=== PATIENT | male | born 1930 | race Asian ===

== ENCOUNTER 2017-03-24 06:10 | Inpatient (IN) | payer MEDICARE, BC ==
[~2017-03-24] VITALS: Ht 172.7 cm; Wt 61.7 kg
[~2017-03-24 06:10] MED LIST: ASPI-1159 PO; CHOL500010 PO; LATA2.5D2 OP; TAMS0.4C31 PO
[2017-03-24] MEDS ORDERED: HYDROCODONE/ACETAMINOPHEN 5/325MG TABLET PO PRN (09:30)
[2017-03-24] MEDS ORDERED: FENTANYL CITRATE/PF 50MCG/ML 2ML VIAL ONE (09:51)
[2017-03-24] MEDS ORDERED: MIDAZOLAM HCL 2 MG/2 ML VIAL ONE (09:51)
[2017-03-24] MEDS ORDERED: BUPIVACAINE HCL 0.5% (5MG/ML) 50ML ONE (09:59)
[2017-03-24] MEDS ORDERED: SKIN ADHESIVE 0.7 GM EA TOP ONE (09:59)
[2017-03-24] MEDS ORDERED: ONDANSETRON HCL 4MG/2ML VIAL IV PRN (10:45)
[2017-03-24] MEDS ORDERED: MEPERIDINE HCL/PF 25MG/ML CPJ IV PRN (10:45)
[2017-03-24] MEDS ORDERED: HYDROMORPHONE HCL/PF 2MG/ML CPJ IV PRN (10:45)
[2017-03-24] MEDS ORDERED: LABETALOL HCL 20MG/4ML CARPUJECT IV PRN (10:45)
[2017-03-24] MEDS ORDERED: GLYCOPYRROLATE 0.2 MG/ML 2ML VIAL ONE (11:11)
[2017-03-24] MEDS ORDERED: ROCURONIUM BROMIDE 10MG/ML VIAL 5ML IV ONE (11:11)
[2017-03-24] MEDS ORDERED: LABETALOL HCL 5MG/ML VIAL 20ML IV ONE (11:11)
[2017-03-24] MEDS ORDERED: DEXAMETHASONE 4MG/ML 1ML VIAL ONE (11:11)
[2017-03-24] MEDS ORDERED: SODIUM CHLORIDE 0.9% 10ML VIAL ONE (11:11)
[2017-03-24] MEDS ORDERED: CEFAZOLIN SODIUM 1000MG/VIAL ONE (11:11)
[2017-03-24] MEDS ORDERED: PROPOFOL 200MG/20ML VIAL IV ONE (11:11)
[2017-03-24] MEDS ORDERED: SUCCINYLCHOLINE CHLORIDE 200MG/10ML VIAL IV ONE (11:11)
[2017-03-24] MEDS ORDERED: LIDOCAINE HCL 1% 20ML VIAL (Pyxis) INJ ONE (11:11)
[2017-03-24] MEDS ORDERED: NEOSTIGMINE METHYLSULFATE 1MG/ML 10 ML VIAL ONE (11:11)
[2017-03-24] MEDS ORDERED: HYDR-519 PO (11:37)
[2017-03-24] MEDS ORDERED: MULT-1146 PO (11:37)
[2017-03-24] MEDS ORDERED: ASCO-339 PO (11:37)
[2017-03-24] MEDS ORDERED: FAMO20TA8 PO (11:37)
[2017-03-24] MEDS ORDERED: LOSA25TA12 PO (11:37)
[2017-03-24] MEDS ORDERED: ALBU2.5V13 IH (11:37)
[2017-03-24] MEDS ORDERED: METO-293 PO (11:37)
[2017-03-24] MEDS ORDERED: MEGE400O28 PO (11:37)
[2017-03-24] MEDS ORDERED: RIVA20TA PO (11:37)
[2017-03-24] MEDS ORDERED: DIPH25CA83 PO (11:37)
[2017-03-24] MEDS ORDERED: TIMO15DR12 BOTHEYE (11:57)
[2017-03-24] MEDS ORDERED: [UNRECOGNIZED DRUG - CODE] PO (11:57)
[2017-03-24] MEDS ORDERED: LACT10SO7 PO (11:59)
[2017-03-24] MEDS ORDERED: PIPERACILLIN/TAZOBACTAM 3.375 G/VIAL IV SCH (14:00)
[2017-03-24 15:30] VITALS: BP 162/84
[2017-03-24 16:00] VITALS: BP 162/84
[2017-03-24] MEDS ORDERED: SODIUM CHLORIDE 0.9% 1,000 ML IV SCH (16:00)
[2017-03-24 17:23] LABS: HEMATOCRIT 33.5 % (42.0-52.0); HEMOGLOBIN 10.8 g/dL (14.0-18.0)
[2017-03-24] MEDS: PIPERACILLIN/TAZ 3.375G PREMIX 50 ML IV SCH (18:45)
[2017-03-24] MEDS: DEXT 5%/0.45% NACL KCL 20MEQ/L 1,000 ML IV SCH (18:45)
[2017-03-24 20:00] VITALS: BP 158/85
[2017-03-24] MEDS: MORPHINE SULFATE 4 MG/ML CPJ (NOT FOR IM USE) IV PRN ×2 (20:18→23:34)
[2017-03-24] MEDS: SODIUM CHLORIDE 0.9% INJ 3ML FLUSH IVF SCH (21:26)
[2017-03-25] VITALS: BP 149/81
[2017-03-25] MEDS: PIPERACILLIN/TAZ 3.375G PREMIX 50 ML IV SCH ×3 (03:43→17:30)
[2017-03-25] MEDS: DEXT 5%/0.45% NACL KCL 20MEQ/L 1,000 ML IV SCH (03:43)
[2017-03-25] MEDS: MORPHINE SULFATE 4 MG/ML CPJ (NOT FOR IM USE) IV PRN ×2 (03:57→08:13)
[2017-03-25 04:00] VITALS: BP 166/88
[2017-03-25 05:51] LABS: HEMATOCRIT. 26.9 % (42.0-52.0); HEMOGLOBIN. 8.3 g/dL (14.0-18.0); MEAN CORPUSCULAR HEMOGLOBIN 29.5 pg (28.0-32.0); MEAN CORPUSCULAR VOLUME 95.3 fL (80.0-94.0); MEAN PLATELET VOLUME 7.3 fl (7.4-10.4); PLATELET 418 x1000/uL (130-400); RED BLOOD CELL COUNT 2.83 mill/uL (4.7-6.1); RED CELL DISTRIBUTION WIDTH 19.3 % (11.6-14.6)
[2017-03-25 06:32] LABS: CARBON DIOXIDE 14 mEq/L (21-32); CHLORIDE 109 mEq/L (98-107); PHOSPHORUS 3.4 mg/dL (2.5-4.9)
[2017-03-25] MEDS ORDERED: DEXTROSE 50% WATER 50ML SYRINGE IV PRN (07:30)
[2017-03-25] MEDS: INSULIN LISPRO 100 UNITS/ML SUBCUT SCH ×2 (07:30→07:34)
[2017-03-25] MEDS ORDERED: INSULIN LISPRO 100 UNITS/ML SUBCUT SCH (07:50)
[2017-03-25] MEDS ORDERED: BLOOD SUGAR DIAGNOSTIC STRIP TEST SCH (07:50)
[2017-03-25 08:00] VITALS: BP 164/89
[2017-03-25 12:00] VITALS: BP 163/102
[2017-03-25] MEDS ORDERED: CLONIDINE HCL 0.2MG/24HR PATCH TD SCH (12:00)
[2017-03-25] MEDS ORDERED: MAGNESIUM 2 G PREMIX 50 ML IV SCH (12:00)
[2017-03-25] MEDS: HYDROCODONE/ACETAMINOPHEN 5/325MG TABLET PO PRN ×2 (12:03→17:29)
[2017-03-25 14:01] LABS: PLATELET ESTIMATE SLIGHTLY INCREASED
[2017-03-25] MEDS: SODIUM CHLORIDE 0.9% INJ 3ML FLUSH IVF SCH ×2 (15:25→22:11)
[2017-03-25] MEDS: SODIUM BICARBONATE 50 MEQ in DEXT 5%/0.2% NACL 1,000 ML IV SCH ×2 (15:25→22:11)
[2017-03-25 16:00] VITALS: BP 158/91
[2017-03-25 20:00] VITALS: BP 146/88
[2017-03-25] MEDS: HYDRALAZINE HCL 25MG TABLET PO SCH (22:11)
[2017-03-26] VITALS: BP_SYST 114; BP_SYST 172; BP_DIAS 54; BP_DIAS 93
[2017-03-26] MEDS: MORPHINE SULFATE 4 MG/ML CPJ (NOT FOR IM USE) IV PRN ×3 (01:55→21:44)
[2017-03-26] MEDS: PIPERACILLIN/TAZ 3.375G PREMIX 50 ML IV SCH ×3 (01:58→17:53)
[2017-03-26 04:00] VITALS: BP 171/95
[2017-03-26] MEDS: HYDRALAZINE HCL 25MG TABLET PO SCH (05:40)
[2017-03-26] MEDS: SODIUM CHLORIDE 0.9% INJ 3ML FLUSH IVF SCH ×3 (05:41→21:45)
[2017-03-26 07:08] LABS: BASOPHILS % 0.3 % (0.0-2.0); HEMATOCRIT. 30.5 % (42.0-52.0); LYMPHOCYTES % 4.7 % (20.0-50.0); MEAN CORPUSCULAR HEMOGLOBIN 29.2 pg (28.0-32.0); MEAN CORPUSCULAR VOLUME 89.2 fL (80.0-94.0); MONOCYTES % 5.1 % (2.0-8.0); NEUTROPHILS % 89.9 % (40.0-76.0); RED BLOOD CELL COUNT 3.43 mill/uL (4.7-6.1); RED CELL DISTRIBUTION WIDTH 18.5 % (11.6-14.6)
[2017-03-26 07:31] LABS: PLATELET 528 x1000/uL (130-400)
[2017-03-26 07:44] LABS: CARBON DIOXIDE 24 mEq/L (21-32); CHLORIDE 108 mEq/L (98-107); PHOSPHORUS 3.1 mg/dL (2.5-4.9)
[2017-03-26 08:00] VITALS: BP 182/108
[2017-03-26] MEDS: ONDANSETRON HCL 4MG/2ML VIAL IV PRN (10:48)
[2017-03-26 12:00] VITALS: BP 149/82
[2017-03-26] MEDS: HYDRALAZINE HCL 50MG TABLET PO SCH ×2 (15:08→21:42)
[2017-03-26 16:00] VITALS: BP 150/82
[2017-03-26] MEDS: SODIUM BICARBONATE 50 MEQ in DEXT 5%/0.2% NACL 1,000 ML IV SCH ×2 (16:47→21:42)
[2017-03-26 20:00] VITALS: BP 146/74
[2017-03-27] VITALS (9 sets, daily range): BP systolic 114–144; BP diastolic 54–77
[2017-03-27] MEDS: PIPERACILLIN/TAZ 3.375G PREMIX 50 ML IV SCH ×3 (05:45→19:48)
[2017-03-27] MEDS: SODIUM BICARBONATE 50 MEQ in DEXT 5%/0.2% NACL 1,000 ML IV SCH ×2 (05:45→19:06)
[2017-03-27] MEDS: SODIUM CHLORIDE 0.9% INJ 3ML FLUSH IVF SCH ×3 (05:46→18:22)
[2017-03-27] MEDS: HYDRALAZINE HCL 50MG TABLET PO SCH ×3 (05:56→22:06)
[2017-03-27] MEDS: MORPHINE SULFATE 4 MG/ML CPJ (NOT FOR IM USE) IV PRN ×2 (06:33→20:57)
[2017-03-27 08:42] LABS: CARBON DIOXIDE 23 mEq/L (21-32); CHLORIDE 106 mEq/L (98-107)
[2017-03-27] MEDS ORDERED: BISACODYL 10MG SUPP PR SCH (10:15)
[2017-03-27] MEDS ORDERED: BISACODYL 5MG TABLET PO SCH (10:15)
[2017-03-27 11:15] LABS: HEMATOCRIT. 23.8 % (42.0-52.0); HEMOGLOBIN. 7.8 g/dL (14.0-18.0); MEAN CORPUSCULAR HEMOGLOBIN 29.3 pg (28.0-32.0); MEAN CORPUSCULAR VOLUME 89.3 fL (80.0-94.0); MEAN PLATELET VOLUME 7.4 fl (7.4-10.4); PLATELET 417 x1000/uL (130-400); RED BLOOD CELL COUNT 2.67 mill/uL (4.7-6.1); RED CELL DISTRIBUTION WIDTH 17.9 % (11.6-14.6)
[2017-03-27 12:23] LABS: PLATELET ESTIMATE SLIGHTLY INCREASED
[2017-03-27] MEDS ORDERED: FUROSEMIDE 20MG/2ML VIAL IVP NR (16:00)
[2017-03-27] MEDS: ONDANSETRON HCL 4MG/2ML VIAL IV PRN (18:22)
[2017-03-28] VITALS: BP 105/54
[2017-03-28] MEDS: PIPERACILLIN/TAZ 3.375G PREMIX 50 ML IV SCH ×3 (01:18→18:01)
[2017-03-28 04:00] VITALS: BP 100/56
[2017-03-28] MEDS: SODIUM BICARBONATE 50 MEQ in DEXT 5%/0.2% NACL 1,000 ML IV SCH ×2 (05:16→14:04)
[2017-03-28] MEDS: HYDRALAZINE HCL 50MG TABLET PO SCH ×3 (05:18→21:55)
[2017-03-28] MEDS: SODIUM CHLORIDE 0.9% INJ 3ML FLUSH IVF SCH ×3 (05:18→22:27)
[2017-03-28] MEDS: MORPHINE SULFATE 4 MG/ML CPJ (NOT FOR IM USE) IV PRN ×2 (06:20→18:27)
[2017-03-28 07:44] LABS: HEMATOCRIT 25.9 % (42.0-52.0); HEMOGLOBIN 8.6 g/dL (14.0-18.0); MEAN CORPUSCULAR HEMOGLOBIN 29.4 pg (28.0-32.0); MEAN CORPUSCULAR VOLUME 88.4 fL (80.0-94.0); PLATELET 419 x1000/uL (130-400); RED BLOOD CELL COUNT 2.93 mill/uL (4.7-6.1); RED CELL DISTRIBUTION WIDTH 16.8 % (11.6-14.6)
[2017-03-28 08:00] VITALS: BP 126/54
[2017-03-28] MEDS: METOCLOPRAMIDE HCL 10MG/2ML VIAL IV SCH ×2 (11:52→18:00)
[2017-03-28 12:00] VITALS: BP 110/62
[2017-03-28] MEDS ORDERED: FUROSEMIDE 20MG/2ML VIAL IVP NR (12:00)
[2017-03-28 16:00] VITALS: BP 125/65
[2017-03-28 20:00] VITALS: BP 130/71
[2017-03-29] VITALS: BP 133/67
[2017-03-29] MEDS: METOCLOPRAMIDE HCL 10MG/2ML VIAL IV SCH ×4 (00:12→17:04)
[2017-03-29] MEDS: SODIUM BICARBONATE 50 MEQ in DEXT 5%/0.2% NACL 1,000 ML IV SCH (03:50)
[2017-03-29] MEDS: PIPERACILLIN/TAZ 3.375G PREMIX 50 ML IV SCH ×3 (03:50→17:05)
[2017-03-29] MEDS: MORPHINE SULFATE 4 MG/ML CPJ (NOT FOR IM USE) IV PRN (03:54)
[2017-03-29 04:00] VITALS: BP 121/58
[2017-03-29] MEDS: SODIUM CHLORIDE 0.9% INJ 3ML FLUSH IVF SCH ×3 (06:07→21:43)
[2017-03-29] MEDS: HYDRALAZINE HCL 50MG TABLET PO SCH (06:07)
[2017-03-29 06:16] LABS: BASOPHILS % 0.4 % (0.0-2.0); EOSINOPHILS % 0.4 % (0.0-5.0); HEMATOCRIT. 33.1 % (42.0-52.0); HEMOGLOBIN. 10.8 g/dL (14.0-18.0); LYMPHOCYTES % 7.3 % (20.0-50.0); MEAN CORPUSCULAR HEMOGLOBIN 29.1 pg (28.0-32.0); MEAN CORPUSCULAR VOLUME 89.4 fL (80.0-94.0); MEAN PLATELET VOLUME 7.4 fl (7.4-10.4); MONOCYTES % 5.5 % (2.0-8.0); NEUTROPHILS % 86.4 % (40.0-76.0); PLATELET 579 x1000/uL (130-400); RED CELL DISTRIBUTION WIDTH 17.4 % (11.6-14.6)
[2017-03-29 06:49] LABS: CARBON DIOXIDE 26 mEq/L (21-32); CHLORIDE 103 mEq/L (98-107)
[2017-03-29 06:54] LABS: PHOSPHORUS 3.4 mg/dL (2.5-4.9)
[2017-03-29 08:00] VITALS: BP 87/51
[2017-03-29] MEDS ORDERED: BISACODYL 10MG SUPP PR NR (10:15)
[2017-03-29] MEDS ORDERED: SODIUM CHLORIDE 0.9% 500 ML IV ONE (11:45)
[2017-03-29 12:20] VITALS: BP 119/53
[2017-03-29] MEDS: DEXT 5%/0.9% NACL KCL 20MEQ/L 1,000 ML IV SCH (14:02)
[2017-03-29 16:00] VITALS: BP 98/46
[2017-03-29] MEDS: HYDROMORPHONE HCL/PF 2MG/ML CPJ IV PRN (17:13)
[2017-03-29 20:00] VITALS: BP 110/58
[2017-03-30] VITALS: BP 113/53
[2017-03-30] MEDS: METOCLOPRAMIDE HCL 10MG/2ML VIAL IV SCH ×4 (01:06→18:14)
[2017-03-30] MEDS: PIPERACILLIN/TAZ 3.375G PREMIX 50 ML IV SCH ×3 (01:06→18:14)
[2017-03-30 04:00] VITALS: BP 107/68
[2017-03-30] MEDS: SODIUM CHLORIDE 0.9% INJ 3ML FLUSH IVF SCH ×3 (05:50→22:06)
[2017-03-30] MEDS: HYDROMORPHONE HCL/PF 2MG/ML CPJ IV PRN (06:49)
[2017-03-30 06:54] LABS: CHLORIDE 102 mEq/L (98-107)
[2017-03-30 06:57] LABS: BASOPHILS % 0.3 % (0.0-2.0); EOSINOPHILS % 0.4 % (0.0-5.0); HEMATOCRIT. 28.6 % (42.0-52.0); HEMOGLOBIN. 9.4 g/dL (14.0-18.0); LYMPHOCYTES % 9.2 % (20.0-50.0); MEAN CORPUSCULAR HEMOGLOBIN 29.4 pg (28.0-32.0); MEAN CORPUSCULAR VOLUME 89.3 fL (80.0-94.0); MEAN PLATELET VOLUME 7.3 fl (7.4-10.4); MONOCYTES % 5.4 % (2.0-8.0); NEUTROPHILS % 84.7 % (40.0-76.0); PLATELET 529 x1000/uL (130-400); RED CELL DISTRIBUTION WIDTH 17.2 % (11.6-14.6)
[2017-03-30 07:04] LABS: CARBON DIOXIDE 20 mEq/L (21-32); PHOSPHORUS 4.6 mg/dL (2.5-4.9)
[2017-03-30 08:00] VITALS: BP 112/45
[2017-03-30 09:40] LABS: CLARITY URINE CLOUDY (CLEAR); COLOR URINE YELLOW (YELLOW); GLUCOSE URINE NEGATIVE (NEGATIVE); KETONES URINE NEGATIVE (NEGATIVE); LEUKOCYTE ESTERASE URINE TRACE (NEGATIVE); NITRITE URINE NEGATIVE (NEGATIVE); OCCULT BLOOD URINE TRACE (NEGATIVE); PROTEIN URINE 2+ (NEGATIVE); SPECIFIC GRAVITY URINE 1.023 (1.005-1.030); UROBILINOGEN URINE 0.2 E.U./dL (0.2-1.0)
[2017-03-30] MEDS: ENOXAPARIN 30MG/0.3ML SYR SUBCUT SCH (09:43)
[2017-03-30] MEDS: DEXT 5%/0.9% NACL KCL 20MEQ/L 1,000 ML IV SCH ×2 (09:43→18:14)
[2017-03-30] MEDS: BLOOD SUGAR DIAGNOSTIC STRIP TEST SCH ×3 (11:43→21:58)
[2017-03-30] MEDS: INSULIN LISPRO (LOW DOSE) 100 UNITS/ML SUBCUT SCH ×3 (11:51→21:00)
[2017-03-30 12:00] VITALS: BP 122/48
[2017-03-30 16:00] VITALS: BP 103/43
[2017-03-30 20:00] VITALS: BP 109/55
[2017-03-30] MEDS: TOTAL PARENTERAL NUTRITION 1,000 ML IV SCH (21:54)
[2017-03-30] MEDS: FAT EMULSIONS 500 ML IV SCH (21:55)
[2017-03-31] VITALS: BP 106/59
[2017-03-31] MEDS: METOCLOPRAMIDE HCL 10MG/2ML VIAL IV SCH ×4 (00:26→17:39)
[2017-03-31] MEDS: PIPERACILLIN/TAZ 3.375G PREMIX 50 ML IV SCH ×3 (01:00→17:15)
[2017-03-31] MEDS: HYDROMORPHONE HCL/PF 2MG/ML CPJ IV PRN ×2 (01:35→04:37)
[2017-03-31 04:00] VITALS: BP 121/52
[2017-03-31] MEDS: SODIUM CHLORIDE 0.9% INJ 3ML FLUSH IVF SCH ×3 (06:21→21:17)
[2017-03-31] MEDS: BLOOD SUGAR DIAGNOSTIC STRIP TEST SCH ×4 (06:34→21:40)
[2017-03-31] MEDS: INSULIN LISPRO (LOW DOSE) 100 UNITS/ML SUBCUT SCH ×4 (06:47→21:00)
[2017-03-31 07:17] LABS: BASOPHILS % 0.7 % (0.0-2.0); EOSINOPHILS % 7.3 % (0.0-5.0); HEMOGLOBIN. 7.7 g/dL (14.0-18.0); LYMPHOCYTES % 10.9 % (20.0-50.0); MEAN CORPUSCULAR HEMOGLOBIN 29.9 pg (28.0-32.0); MEAN CORPUSCULAR VOLUME 89.8 fL (80.0-94.0); MEAN PLATELET VOLUME 7.4 fl (7.4-10.4); MONOCYTES % 5.8 % (2.0-8.0); NEUTROPHILS % 75.3 % (40.0-76.0); PLATELET 449 x1000/uL (130-400); RED BLOOD CELL COUNT 2.57 mill/uL (4.7-6.1); RED CELL DISTRIBUTION WIDTH 17.6 % (11.6-14.6)
[2017-03-31 07:36] LABS: INR 1.1; PARTIAL THROMBOPLASTIN TIME 31.1 sec (23.4-31.0); PROTHROMBIN TIME 11.8 sec (9.4-11.6)
[2017-03-31 07:38] LABS: PHOSPHORUS 3.9 mg/dL (2.5-4.9); PREALBUMIN 12.8 mg/dL (20.0-40.0)
[2017-03-31 08:00] VITALS: BP 97/40
[2017-03-31] MEDS: TOTAL PARENTERAL NUTRITION 1,000 ML IV SCH ×2 (08:37→21:19)
[2017-03-31] MEDS: ENOXAPARIN 30MG/0.3ML SYR SUBCUT SCH (08:39)
[2017-03-31 12:00] VITALS: BP 122/48
[2017-03-31 13:13] LABS: *CREATININE RANDOM URINE 57.9 mg/dL (Not Estab.); MICROALBUMIN RANDOM URINE 89.8 ug/mL (Not Estab.)
[2017-03-31] MEDS ORDERED: POTASSIUM CHLORIDE INJ 40 MEQ in DEXT 5% WATER 250 ML IV NR (13:30)
[2017-03-31 16:00] VITALS: BP 97/51
[2017-03-31 16:01] LABS: HEMATOCRIT 22.7 % (42.0-52.0); HEMOGLOBIN 7.2 g/dL (14.0-18.0)
[2017-03-31 20:00] VITALS: BP 105/54
[2017-03-31] MEDS: DEXT 5%/0.9% NACL KCL 20MEQ/L 1,000 ML IV SCH (21:21)
[2017-03-31 23:36] LABS: HEMATOCRIT 21.8 % (42.0-52.0); HEMOGLOBIN 7.3 g/dL (14.0-18.0)
[2017-04-01] VITALS: BP 98/47
[2017-04-01] MEDS: METOCLOPRAMIDE HCL 10MG/2ML VIAL IV SCH ×4 (00:56→18:05)
[2017-04-01 04:00] VITALS: BP 137/60
[2017-04-01] MEDS: SODIUM CHLORIDE 0.9% INJ 3ML FLUSH IVF SCH ×3 (05:33→22:09)
[2017-04-01] MEDS: BLOOD SUGAR DIAGNOSTIC STRIP TEST SCH ×4 (06:03→21:19)
[2017-04-01] MEDS: INSULIN LISPRO (LOW DOSE) 100 UNITS/ML SUBCUT SCH ×4 (06:03→21:00)
[2017-04-01 07:31] LABS: BASOPHILS % 0.9 % (0.0-2.0); EOSINOPHILS % 7.9 % (0.0-5.0); HEMATOCRIT. 24.7 % (42.0-52.0); HEMOGLOBIN. 8.1 g/dL (14.0-18.0); MEAN CORPUSCULAR HEMOGLOBIN 29.9 pg (28.0-32.0); MEAN CORPUSCULAR VOLUME 90.6 fL (80.0-94.0); MEAN PLATELET VOLUME 7.4 fl (7.4-10.4); MONOCYTES % 8.6 % (2.0-8.0); NEUTROPHILS % 72.6 % (40.0-76.0); PLATELET 469 x1000/uL (130-400); RED BLOOD CELL COUNT 2.72 mill/uL (4.7-6.1)
[2017-04-01 08:00] VITALS: BP 130/56
[2017-04-01 08:11] LABS: CARBON DIOXIDE 23 mEq/L (21-32); CHLORIDE 112 mEq/L (98-107); PHOSPHORUS 2.1 mg/dL (2.5-4.9)
[2017-04-01] MEDS: HYDROMORPHONE HCL/PF 2MG/ML CPJ IV PRN (09:04)
[2017-04-01] MEDS: TOTAL PARENTERAL NUTRITION 1,000 ML IV SCH ×2 (09:07→22:10)
[2017-04-01] MEDS ORDERED: PIPERACILLIN/TAZ 3.375G PREMIX 50 ML IV SCH (10:30)
[2017-04-01 12:00] VITALS: BP 131/64
[2017-04-01 16:00] VITALS: BP 112/63
[2017-04-01 16:04] LABS: HEMOGLOBIN 8.5 g/dL (14.0-18.0)
[2017-04-01] MEDS: DEXT 5%/0.9% NACL KCL 20MEQ/L 1,000 ML IV SCH (18:04)
[2017-04-01] MEDS: PIPERACILLIN/TAZ 3.375G PREMIX 50 ML IV SCH (18:04)
[2017-04-01 20:00] VITALS: BP 142/66
[2017-04-01 20:21] LABS: HEMATOCRIT 23.3 % (42.0-52.0); HEMOGLOBIN 7.6 g/dL (14.0-18.0)
[2017-04-01] MEDS: FAT EMULSIONS 500 ML IV SCH (22:09)
[2017-04-02] VITALS (10 sets, daily range): BP systolic 123–171; BP diastolic 60–85
[2017-04-02] MEDS: METOCLOPRAMIDE HCL 10MG/2ML VIAL IV SCH ×5 (00:16→23:30)
[2017-04-02] MEDS: PIPERACILLIN/TAZ 3.375G PREMIX 50 ML IV SCH ×3 (00:16→17:06)
[2017-04-02 00:29] LABS: HEMATOCRIT 21.7 % (42.0-52.0); HEMOGLOBIN 7.1 g/dL (14.0-18.0)
[2017-04-02] MEDS: SODIUM CHLORIDE 0.9% INJ 3ML FLUSH IVF SCH ×3 (05:59→22:26)
[2017-04-02] MEDS: INSULIN LISPRO (LOW DOSE) 100 UNITS/ML SUBCUT SCH ×4 (06:13→21:00)
[2017-04-02] MEDS: BLOOD SUGAR DIAGNOSTIC STRIP TEST SCH ×4 (06:13→21:57)
[2017-04-02] MEDS: ONDANSETRON HCL 4MG/2ML VIAL IV PRN (08:28)
[2017-04-02 08:42] LABS: BASOPHILS % 0.3 % (0.0-2.0); EOSINOPHILS % 2.5 % (0.0-5.0); HEMATOCRIT. 31.6 % (42.0-52.0); HEMOGLOBIN. 11.1 g/dL (14.0-18.0); LYMPHOCYTES % 9.1 % (20.0-50.0); MEAN CORPUSCULAR VOLUME 90.7 fL (80.0-94.0); MEAN PLATELET VOLUME 7.5 fl (7.4-10.4); MONOCYTES % 5.9 % (2.0-8.0); NEUTROPHILS % 82.2 % (40.0-76.0); PLATELET 533 x1000/uL (130-400); RED BLOOD CELL COUNT 3.48 mill/uL (4.7-6.1); RED CELL DISTRIBUTION WIDTH 17.1 % (11.6-14.6)
[2017-04-02 09:07] LABS: CARBON DIOXIDE 23 mEq/L (21-32); CHLORIDE 112 mEq/L (98-107); PHOSPHORUS 1.1 mg/dL (2.5-4.9)
[2017-04-02] MEDS: HYDROMORPHONE HCL/PF 2MG/ML CPJ IV PRN ×2 (09:12→12:30)
[2017-04-02] MEDS: TOTAL PARENTERAL NUTRITION 1,000 ML IV SCH ×2 (09:15→22:07)
[2017-04-02 09:54] LABS: PREALBUMIN 16.3 mg/dL (20.0-40.0)
[2017-04-02] MEDS ORDERED: POTASSIUM PHOS,M-BASIC-D-BASIC 30 MMOL in DEXT 5% WATER 500 ML IV NR (11:30)
[2017-04-02 16:29] LABS: HEMATOCRIT 29.8 % (42.0-52.0); HEMOGLOBIN 9.9 g/dL (14.0-18.0)
[2017-04-02] MEDS: DOCUSATE SODIUM 100MG CAPSULE PO SCH (17:05)
[2017-04-02 22:01] LABS: HEMATOCRIT 30.2 % (42.0-52.0); HEMOGLOBIN 9.9 g/dL (14.0-18.0)
[2017-04-02] MEDS: DEXT 5%/0.9% NACL KCL 20MEQ/L 1,000 ML IV SCH (22:17)
[2017-04-03] VITALS: BP 151/86
[2017-04-03] MEDS: HYDROMORPHONE HCL/PF 2MG/ML CPJ IV PRN ×4 (01:15→22:04)
[2017-04-03] MEDS: ONDANSETRON HCL 4MG/2ML VIAL IV PRN ×3 (01:15→22:04)
[2017-04-03] MEDS: PIPERACILLIN/TAZ 3.375G PREMIX 50 ML IV SCH ×3 (01:16→17:48)
[2017-04-03 01:27] LABS: HEMATOCRIT 31.4 % (42.0-52.0); HEMOGLOBIN 10.2 g/dL (14.0-18.0)
[2017-04-03 04:00] VITALS: BP 145/60
[2017-04-03] MEDS: BLOOD SUGAR DIAGNOSTIC STRIP TEST SCH ×4 (06:00→21:00)
[2017-04-03] MEDS: INSULIN LISPRO (LOW DOSE) 100 UNITS/ML SUBCUT SCH ×4 (06:01→21:00)
[2017-04-03] MEDS: SODIUM CHLORIDE 0.9% INJ 3ML FLUSH IVF SCH ×3 (06:03→22:06)
[2017-04-03] MEDS: METOCLOPRAMIDE HCL 10MG/2ML VIAL IV SCH ×3 (06:03→17:49)
[2017-04-03 06:33] LABS: BASOPHILS % 0.4 % (0.0-2.0); EOSINOPHILS % 2.1 % (0.0-5.0); HEMATOCRIT. 29.3 % (42.0-52.0); HEMOGLOBIN. 9.9 g/dL (14.0-18.0); LYMPHOCYTES % 10.2 % (20.0-50.0); MEAN CORPUSCULAR HEMOGLOBIN 30.7 pg (28.0-32.0); MEAN CORPUSCULAR VOLUME 90.8 fL (80.0-94.0); MEAN PLATELET VOLUME 7.5 fl (7.4-10.4); MONOCYTES % 8.7 % (2.0-8.0); NEUTROPHILS % 78.6 % (40.0-76.0); PLATELET 501 x1000/uL (130-400); RED BLOOD CELL COUNT 3.23 mill/uL (4.7-6.1); RED CELL DISTRIBUTION WIDTH 17.1 % (11.6-14.6)
[2017-04-03 06:43] LABS: CARBON DIOXIDE 22 mEq/L (21-32); CHLORIDE 113 mEq/L (98-107); PHOSPHORUS 1.8 mg/dL (2.5-4.9)
[2017-04-03 07:50] VITALS: BP 122/60
[2017-04-03] MEDS: DOCUSATE SODIUM 100MG CAPSULE PO SCH ×2 (09:11→17:49)
[2017-04-03 11:46] VITALS: BP 114/50
[2017-04-03] MEDS ORDERED: SODIUM PHOS,M-BASIC-D-BASIC 30 MM in DEXT 5% WATER 500 ML IV NR (12:30)
[2017-04-03] MEDS: TOTAL PARENTERAL NUTRITION 1,000 ML IV SCH (14:52)
[2017-04-03 15:52] VITALS: BP 136/56
[2017-04-03 20:00] VITALS: BP 114/93
[2017-04-04] VITALS: BP 118/85
[2017-04-04] MEDS: PIPERACILLIN/TAZ 3.375G PREMIX 50 ML IV SCH ×3 (01:21→17:31)
[2017-04-04] MEDS: METOCLOPRAMIDE HCL 10MG/2ML VIAL IV SCH ×4 (01:22→18:13)
[2017-04-04] MEDS: TOTAL PARENTERAL NUTRITION 1,000 ML IV SCH ×2 (03:33→15:44)
[2017-04-04 04:00] VITALS: BP 123/60
[2017-04-04] MEDS: HYDROMORPHONE HCL/PF 2MG/ML CPJ IV PRN ×2 (06:50→15:14)
[2017-04-04] MEDS: BLOOD SUGAR DIAGNOSTIC STRIP TEST SCH ×4 (06:56→21:00)
[2017-04-04] MEDS: INSULIN LISPRO (LOW DOSE) 100 UNITS/ML SUBCUT SCH ×4 (06:56→21:00)
[2017-04-04] MEDS: SODIUM CHLORIDE 0.9% INJ 3ML FLUSH IVF SCH ×2 (06:57→15:15)
[2017-04-04 08:00] VITALS: BP 117/45
[2017-04-04] MEDS: DOCUSATE SODIUM 100MG CAPSULE PO SCH ×2 (08:01→17:32)
[2017-04-04] MEDS ORDERED: PHYTONADIONE 10MG/ML AMP SUBCUT SCH (09:00)
[2017-04-04 09:46] LABS: BASOPHILS % 0.4 % (0.0-2.0); EOSINOPHILS % 1.9 % (0.0-5.0); HEMATOCRIT. 25.8 % (42.0-52.0); LYMPHOCYTES % 7.5 % (20.0-50.0); MEAN CORPUSCULAR VOLUME 96.5 fL (80.0-94.0); MEAN PLATELET VOLUME 7.3 fl (7.4-10.4); MONOCYTES % 6.7 % (2.0-8.0); NEUTROPHILS % 83.5 % (40.0-76.0); PLATELET 423 x1000/uL (130-400); RED BLOOD CELL COUNT 2.67 mill/uL (4.7-6.1); RED CELL DISTRIBUTION WIDTH 17.5 % (11.6-14.6)
[2017-04-04 10:00] LABS: CARBON DIOXIDE 21 mEq/L (21-32); CHLORIDE 114 mEq/L (98-107); PHOSPHORUS 3.3 mg/dL (2.5-4.9)
[2017-04-04 12:00] VITALS: BP 132/91
[2017-04-04 16:00] VITALS: BP 129/90
[2017-04-04 20:00] VITALS: BP 127/65
[2017-04-05] VITALS: BP 131/66
[2017-04-05] MEDS: SODIUM CHLORIDE 0.9% INJ 3ML FLUSH IVF SCH ×3 (00:26→13:09)
[2017-04-05] MEDS: METOCLOPRAMIDE HCL 10MG/2ML VIAL IV SCH ×4 (00:26→17:10)
[2017-04-05] MEDS: TOTAL PARENTERAL NUTRITION 1,000 ML IV SCH ×3 (00:35→22:01)
[2017-04-05] MEDS: FAT EMULSIONS 500 ML IV SCH (00:47)
[2017-04-05] MEDS: ONDANSETRON HCL 4MG/2ML VIAL IV PRN ×2 (01:16→08:34)
[2017-04-05] MEDS: PIPERACILLIN/TAZ 3.375G PREMIX 50 ML IV SCH ×3 (01:26→17:10)
[2017-04-05 04:30] VITALS: BP 132/63
[2017-04-05] MEDS: INSULIN LISPRO (LOW DOSE) 100 UNITS/ML SUBCUT SCH ×4 (06:17→21:00)
[2017-04-05] MEDS: BLOOD SUGAR DIAGNOSTIC STRIP TEST SCH ×4 (06:17→21:00)
[2017-04-05 08:00] VITALS: BP 138/57
[2017-04-05] MEDS: DOCUSATE SODIUM 100MG CAPSULE PO SCH ×2 (08:34→16:18)
[2017-04-05 10:10] LABS: BASOPHILS % 0.7 % (0.0-2.0); EOSINOPHILS % 3.8 % (0.0-5.0); HEMATOCRIT. 23.8 % (42.0-52.0); HEMOGLOBIN. 7.8 g/dL (14.0-18.0); LYMPHOCYTES % 9.9 % (20.0-50.0); MEAN CORPUSCULAR HEMOGLOBIN 30.5 pg (28.0-32.0); MEAN CORPUSCULAR VOLUME 92.6 fL (80.0-94.0); MEAN PLATELET VOLUME 7.1 fl (7.4-10.4); MONOCYTES % 7.3 % (2.0-8.0); NEUTROPHILS % 78.3 % (40.0-76.0); PLATELET 465 x1000/uL (130-400); RED BLOOD CELL COUNT 2.57 mill/uL (4.7-6.1); RED CELL DISTRIBUTION WIDTH 17.7 % (11.6-14.6)
[2017-04-05 10:18] LABS: INR 1.1; PARTIAL THROMBOPLASTIN TIME 37.9 sec (23.4-31.0); PROTHROMBIN TIME 11.4 sec (9.4-11.6)
[2017-04-05] MEDS: HYDROMORPHONE HCL/PF 2MG/ML CPJ IV PRN ×2 (10:18→18:28)
[2017-04-05 10:21] LABS: CHLORIDE 116 mEq/L (98-107)
[2017-04-05 10:29] LABS: CARBON DIOXIDE 22 mEq/L (21-32); PHOSPHORUS 2.4 mg/dL (2.5-4.9)
[2017-04-05] MEDS ORDERED: FENTANYL CITRATE/PF 50MCG/ML 2ML VIAL ONE (11:51)
[2017-04-05 12:00] VITALS: BP 117/75
[2017-04-05] MEDS: FLUCONAZOLE 400MG/200ML BAG 200 ML IV SCH (14:43)
[2017-04-05 16:00] VITALS: BP 147/65
[2017-04-05 20:00] VITALS: BP 104/50
[2017-04-06] VITALS (9 sets, daily range): BP systolic 112–157; BP diastolic 43–71
[2017-04-06] MEDS: HYDROMORPHONE HCL/PF 2MG/ML CPJ IV PRN ×9 (00:53→23:10)
[2017-04-06] MEDS: METOCLOPRAMIDE HCL 10MG/2ML VIAL IV SCH ×4 (00:55→17:05)
[2017-04-06] MEDS: SODIUM CHLORIDE 0.9% INJ 3ML FLUSH IVF SCH ×4 (00:56→22:00)
[2017-04-06] MEDS: PIPERACILLIN/TAZ 3.375G PREMIX 50 ML IV SCH ×3 (00:58→16:08)
[2017-04-06] MEDS: BLOOD SUGAR DIAGNOSTIC STRIP TEST SCH ×4 (06:40→21:16)
[2017-04-06] MEDS: INSULIN LISPRO (LOW DOSE) 100 UNITS/ML SUBCUT SCH ×4 (07:02→21:00)
[2017-04-06 07:40] LABS: HEMATOCRIT 27.8 % (42.0-52.0); HEMOGLOBIN 9.2 g/dL (14.0-18.0); MEAN CORPUSCULAR HEMOGLOBIN 29.9 pg (28.0-32.0); PLATELET 410 x1000/uL (130-400); RED BLOOD CELL COUNT 3.06 mill/uL (4.7-6.1); RED CELL DISTRIBUTION WIDTH 16.6 % (11.6-14.6)
[2017-04-06] MEDS: DOCUSATE SODIUM 100MG CAPSULE PO SCH ×2 (08:31→16:08)
[2017-04-06] MEDS: FLUCONAZOLE 400MG/200ML BAG 200 ML IV SCH (08:33)
[2017-04-06] MEDS: TOTAL PARENTERAL NUTRITION 1,000 ML IV SCH ×2 (09:22→21:42)
[2017-04-06] MEDS: FAT EMULSIONS 500 ML IV SCH (21:33)
[2017-04-07] VITALS: BP 148/60
[2017-04-07] MEDS: PIPERACILLIN/TAZ 3.375G PREMIX 50 ML IV SCH ×3 (01:05→16:13)
[2017-04-07] MEDS: METOCLOPRAMIDE HCL 10MG/2ML VIAL IV SCH ×4 (01:05→17:04)
[2017-04-07] MEDS: HYDROMORPHONE HCL/PF 2MG/ML CPJ IV PRN ×3 (03:22→11:21)
[2017-04-07] MEDS: BLOOD SUGAR DIAGNOSTIC STRIP TEST SCH ×4 (05:53→21:24)
[2017-04-07] MEDS: INSULIN LISPRO (LOW DOSE) 100 UNITS/ML SUBCUT SCH ×4 (05:54→21:00)
[2017-04-07] MEDS: SODIUM CHLORIDE 0.9% INJ 3ML FLUSH IVF SCH ×2 (05:59→13:16)
[2017-04-07 06:00] VITALS: BP 115/53
[2017-04-07 07:08] LABS: BASOPHILS % 0.3 % (0.0-2.0); HEMATOCRIT. 26.5 % (42.0-52.0); LYMPHOCYTES % 12.1 % (20.0-50.0); MEAN CORPUSCULAR VOLUME 91.9 fL (80.0-94.0); MEAN PLATELET VOLUME 7.4 fl (7.4-10.4); MONOCYTES % 6.5 % (2.0-8.0); NEUTROPHILS % 78.1 % (40.0-76.0); PLATELET 437 x1000/uL (130-400); RED BLOOD CELL COUNT 2.89 mill/uL (4.7-6.1); RED CELL DISTRIBUTION WIDTH 17.1 % (11.6-14.6)
[2017-04-07 08:00] VITALS: BP 138/76
[2017-04-07 08:09] LABS: PHOSPHORUS 2.7 mg/dL (2.5-4.9)
[2017-04-07] MEDS: DOCUSATE SODIUM 100MG CAPSULE PO SCH ×2 (08:20→16:13)
[2017-04-07] MEDS: FLUCONAZOLE 400MG/200ML BAG 200 ML IV SCH (08:21)
[2017-04-07 10:03] LABS: HEMOGLOBIN. 9.3 g/dL (14.0-18.0)
[2017-04-07 10:04] LABS: MEAN CORPUSCULAR HEMOGLOBIN 32.2 pg (28.0-32.0)
[2017-04-07] MEDS: TOTAL PARENTERAL NUTRITION 1,000 ML IV SCH (10:25)
[2017-04-07 12:00] VITALS: BP 132/53
[2017-04-07 16:00] VITALS: BP 147/65
[2017-04-07 20:00] VITALS: BP 126/66
[2017-04-07] MEDS: DEXTROSE 50% WATER 50ML SYRINGE IV PRN (21:27)
[2017-04-08] VITALS: BP 148/80
[2017-04-08] MEDS: PIPERACILLIN/TAZ 3.375G PREMIX 50 ML IV SCH ×3 (00:54→21:02)
[2017-04-08] MEDS: METOCLOPRAMIDE HCL 10MG/2ML VIAL IV SCH ×4 (00:54→17:04)
[2017-04-08] MEDS: HYDROMORPHONE HCL/PF 2MG/ML CPJ IV PRN (00:59)
[2017-04-08] MEDS: SODIUM CHLORIDE 0.9% INJ 3ML FLUSH IVF SCH ×4 (00:59→21:22)
[2017-04-08 04:00] VITALS: BP 147/67
[2017-04-08] MEDS: BLOOD SUGAR DIAGNOSTIC STRIP TEST SCH ×4 (05:48→21:02)
[2017-04-08 05:54] LABS: BASOPHILS % 0.5 % (0.0-2.0); EOSINOPHILS % 3.4 % (0.0-5.0); HEMOGLOBIN. 9.3 g/dL (14.0-18.0); MEAN CORPUSCULAR VOLUME 90.8 fL (80.0-94.0); MEAN PLATELET VOLUME 7.3 fl (7.4-10.4); MONOCYTES % 6.6 % (2.0-8.0); NEUTROPHILS % 78.5 % (40.0-76.0); PLATELET 427 x1000/uL (130-400); RED BLOOD CELL COUNT 3.08 mill/uL (4.7-6.1)
[2017-04-08] MEDS: DEXTROSE 50% WATER 50ML SYRINGE IV PRN (05:58)
[2017-04-08] MEDS: INSULIN LISPRO (LOW DOSE) 100 UNITS/ML SUBCUT SCH ×4 (06:03→21:00)
[2017-04-08 06:17] LABS: INR 1.1; PARTIAL THROMBOPLASTIN TIME 42.4 sec (23.4-31.0); PROTHROMBIN TIME 11.1 sec (9.4-11.6)
[2017-04-08 06:35] LABS: CARBON DIOXIDE 20 mEq/L (21-32); CHLORIDE 112 mEq/L (98-107); PHOSPHORUS 3.6 mg/dL (2.5-4.9)
[2017-04-08 08:00] VITALS: BP 155/82
[2017-04-08] MEDS: DOCUSATE SODIUM 100MG CAPSULE PO SCH ×2 (08:41→16:27)
[2017-04-08] MEDS: DEXTROSE 5% WATER 1,000 ML IV SCH (09:26)
[2017-04-08] MEDS ORDERED: IOHEXOL-300 100 ML BOTTLE ONE (10:36)
[2017-04-08] MEDS ORDERED: MIDAZOLAM HCL 2 MG/2 ML VIAL ONE (11:39)
[2017-04-08] MEDS ORDERED: FENTANYL CITRATE/PF 50MCG/ML 2ML VIAL ONE (11:39)
[2017-04-08] MEDS ORDERED: MEPERIDINE HCL/PF 25MG/ML CPJ IV PRN (12:00)
[2017-04-08] MEDS ORDERED: HYDROMORPHONE HCL/PF 2MG/ML CPJ IV PRN (12:00)
[2017-04-08] MEDS ORDERED: ONDANSETRON HCL 4MG/2ML VIAL IV PRN (12:00)
[2017-04-08] MEDS ORDERED: LABETALOL HCL 20MG/4ML CARPUJECT IV PRN (12:00)
[2017-04-08] MEDS ORDERED: LABETALOL HCL 5MG/ML VIAL 20ML IV ONE ×2 (13:18→13:25)
[2017-04-08] MEDS ORDERED: ONDANSETRON HCL 4MG/2ML VIAL ONE (13:25)
[2017-04-08] MEDS ORDERED: SUCCINYLCHOLINE CHLORIDE 200MG/10ML VIAL IV ONE (13:25)
[2017-04-08] MEDS ORDERED: GLYCOPYRROLATE 0.2 MG/ML 2ML VIAL ONE (13:25)
[2017-04-08] MEDS ORDERED: PROPOFOL 200MG/20ML VIAL IV ONE (13:25)
[2017-04-08] MEDS ORDERED: ROCURONIUM BROMIDE 10MG/ML VIAL 5ML IV ONE (13:25)
[2017-04-08] MEDS ORDERED: NEOSTIGMINE METHYLSULFATE 1MG/ML 10 ML VIAL ONE (13:25)
[2017-04-08] MEDS ORDERED: LIDOCAINE HCL 1% 20ML VIAL (Pyxis) INJ ONE (13:25)
[2017-04-08] MEDS: FLUCONAZOLE 400MG/200ML BAG 200 ML IV SCH (15:57)
[2017-04-08] MEDS: ENOXAPARIN 40MG/0.4ML SYR SUBCUT SCH (16:27)
[2017-04-08 20:00] VITALS: BP 128/65
[2017-04-08] MEDS: METOPROLOL TARTRATE 25MG TABLET PO SCH (21:02)
[2017-04-09] VITALS (7 sets, daily range): BP systolic 139–166; BP diastolic 68–86
[2017-04-09] MEDS: METOCLOPRAMIDE HCL 10MG/2ML VIAL IV SCH ×5 (01:39→23:25)
[2017-04-09] MEDS: DEXTROSE 5% WATER 1,000 ML IV SCH (06:05)
[2017-04-09] MEDS: SODIUM CHLORIDE 0.9% INJ 3ML FLUSH IVF SCH ×3 (06:05→22:06)
[2017-04-09] MEDS: INSULIN LISPRO (LOW DOSE) 100 UNITS/ML SUBCUT SCH ×4 (07:40→21:00)
[2017-04-09] MEDS: BLOOD SUGAR DIAGNOSTIC STRIP TEST SCH ×4 (07:47→21:00)
[2017-04-09] MEDS: ENOXAPARIN 40MG/0.4ML SYR SUBCUT SCH (08:41)
[2017-04-09] MEDS: DOCUSATE SODIUM 100MG CAPSULE PO SCH ×2 (08:41→16:25)
[2017-04-09] MEDS: METOPROLOL TARTRATE 25MG TABLET PO SCH ×2 (08:41→21:41)
[2017-04-09] MEDS: FLUCONAZOLE 400MG/200ML BAG 200 ML IV SCH (08:42)
[2017-04-09 09:22] LABS: BASOPHILS % 0.6 % (0.0-2.0); HEMATOCRIT. 27.6 % (42.0-52.0); HEMOGLOBIN. 9.2 g/dL (14.0-18.0); LYMPHOCYTES % 8.2 % (20.0-50.0); MEAN CORPUSCULAR HEMOGLOBIN 30.3 pg (28.0-32.0); MEAN CORPUSCULAR VOLUME 90.4 fL (80.0-94.0); MEAN PLATELET VOLUME 7.4 fl (7.4-10.4); NEUTROPHILS % 87.2 % (40.0-76.0); PLATELET 419 x1000/uL (130-400); RED BLOOD CELL COUNT 3.05 mill/uL (4.7-6.1); RED CELL DISTRIBUTION WIDTH 17.1 % (11.6-14.6)
[2017-04-09 09:52] LABS: CARBON DIOXIDE 22 mEq/L (21-32); CHLORIDE 112 mEq/L (98-107); PHOSPHORUS 3.5 mg/dL (2.5-4.9)
[2017-04-09] MEDS ORDERED: NA PHOS,M-B/NA PHOS,DI-BA ENEMA 118ML PR NR (10:15)
[2017-04-09] MEDS ORDERED: LACTULOSE 20G/30ML UDC PO PRN (10:15)
[2017-04-09] MEDS: HYDROMORPHONE HCL/PF 2MG/ML CPJ IV PRN ×2 (11:14→23:23)
[2017-04-09] MEDS: DEXT 5%/0.45% NACL KCL 20MEQ/L 1,000 ML IV SCH ×2 (13:06→23:22)
[2017-04-10] VITALS: BP 148/68
[2017-04-10 04:00] VITALS: BP 130/66
[2017-04-10] MEDS: METOCLOPRAMIDE HCL 10MG/2ML VIAL IV SCH ×3 (05:39→17:43)
[2017-04-10] MEDS: BLOOD SUGAR DIAGNOSTIC STRIP TEST SCH ×4 (05:43→21:00)
[2017-04-10] MEDS: INSULIN LISPRO (LOW DOSE) 100 UNITS/ML SUBCUT SCH ×4 (05:43→21:00)
[2017-04-10] MEDS: SODIUM CHLORIDE 0.9% INJ 3ML FLUSH IVF SCH ×3 (05:47→22:30)
[2017-04-10 08:00] VITALS: BP 126/54
[2017-04-10 09:43] LABS: BASOPHILS % 0.3 % (0.0-2.0); EOSINOPHILS % 2.2 % (0.0-5.0); HEMATOCRIT. 23.6 % (42.0-52.0); HEMOGLOBIN. 7.8 g/dL (14.0-18.0); LYMPHOCYTES % 12.8 % (20.0-50.0); MEAN CORPUSCULAR HEMOGLOBIN 30.3 pg (28.0-32.0); MEAN CORPUSCULAR VOLUME 91.3 fL (80.0-94.0); MEAN PLATELET VOLUME 7.2 fl (7.4-10.4); NEUTROPHILS % 77.7 % (40.0-76.0); PLATELET 377 x1000/uL (130-400); RED BLOOD CELL COUNT 2.59 mill/uL (4.7-6.1); RED CELL DISTRIBUTION WIDTH 17.3 % (11.6-14.6)
[2017-04-10] MEDS: DOCUSATE SODIUM 100MG CAPSULE PO SCH ×2 (09:59→17:43)
[2017-04-10] MEDS: METOPROLOL TARTRATE 25MG TABLET PO SCH ×2 (09:59→22:30)
[2017-04-10] MEDS: FLUCONAZOLE 400MG/200ML BAG 200 ML IV SCH (10:00)
[2017-04-10] MEDS: ENOXAPARIN 40MG/0.4ML SYR SUBCUT SCH (10:00)
[2017-04-10] MEDS: DEXT 5%/0.45% NACL KCL 20MEQ/L 1,000 ML IV SCH (10:00)
[2017-04-10 10:07] LABS: CARBON DIOXIDE 25 mEq/L (21-32); CHLORIDE 115 mEq/L (98-107); PHOSPHORUS 2.1 mg/dL (2.5-4.9)
[2017-04-10 12:00] VITALS: BP 139/67
[2017-04-10] MEDS ORDERED: VANCOMYCIN 1500MG in DEXTROSE 5% WATER 250ML IV SCH (12:00)
[2017-04-10] MEDS ORDERED: POTASSIUM PHOS,M-BASIC-D-BASIC 20 MMOL in DEXT 5% WATER 243.3333 ML IV NR (13:00)
[2017-04-10] MEDS: DEXT 5%/0.45% NACL KCL 40MEQ/L 1,000 ML IV SCH (14:12)
[2017-04-10] MEDS: PIPERACILLIN/TAZ 3.375G PREMIX 50 ML IV SCH ×2 (14:12→22:30)
[2017-04-10 16:00] VITALS: BP 127/63
[2017-04-10 20:00] VITALS: BP 107/60
[2017-04-11] VITALS: BP 133/68
[2017-04-11] MEDS: METOCLOPRAMIDE HCL 10MG/2ML VIAL IV SCH ×5 (00:50→23:58)
[2017-04-11 04:00] VITALS: BP 164/78
[2017-04-11] MEDS: PIPERACILLIN/TAZ 3.375G PREMIX 50 ML IV SCH ×3 (05:30→21:23)
[2017-04-11] MEDS: SODIUM CHLORIDE 0.9% INJ 3ML FLUSH IVF SCH ×3 (05:31→21:36)
[2017-04-11] MEDS: INSULIN LISPRO (LOW DOSE) 100 UNITS/ML SUBCUT SCH ×4 (06:38→21:00)
[2017-04-11] MEDS: BLOOD SUGAR DIAGNOSTIC STRIP TEST SCH ×4 (06:38→21:00)
[2017-04-11] MEDS: DEXTROSE 50% WATER 50ML SYRINGE IV PRN (06:47)
[2017-04-11] MEDS: VANCOMYCIN 750 MG PREMIX 150 ML IV SCH ×2 (07:12→23:58)
[2017-04-11] MEDS: DEXT 5%/0.45% NACL KCL 40MEQ/L 1,000 ML IV SCH ×3 (07:45→17:45)
[2017-04-11 08:00] VITALS: BP 147/60
[2017-04-11 08:11] LABS: BASOPHILS % 0.7 % (0.0-2.0); EOSINOPHILS % 3.4 % (0.0-5.0); HEMATOCRIT. 24.7 % (42.0-52.0); HEMOGLOBIN. 8.4 g/dL (14.0-18.0); MEAN CORPUSCULAR VOLUME 91.6 fL (80.0-94.0); MEAN PLATELET VOLUME 7.4 fl (7.4-10.4); NEUTROPHILS % 75.9 % (40.0-76.0); PLATELET 380 x1000/uL (130-400)
[2017-04-11 08:26] LABS: CARBON DIOXIDE 23 mEq/L (21-32); CHLORIDE 113 mEq/L (98-107); PHOSPHORUS 2.6 mg/dL (2.5-4.9)
[2017-04-11] MEDS: DOCUSATE SODIUM 100MG CAPSULE PO SCH ×2 (08:43→17:09)
[2017-04-11] MEDS: FLUCONAZOLE 400MG/200ML BAG 200 ML IV SCH (08:45)
[2017-04-11] MEDS: METOPROLOL TARTRATE 25MG TABLET PO SCH ×2 (08:45→21:00)
[2017-04-11] MEDS: ENOXAPARIN 40MG/0.4ML SYR SUBCUT SCH (08:52)
[2017-04-11 12:00] VITALS: BP 154/66
[2017-04-11 16:00] VITALS: BP 146/75
[2017-04-11 20:00] VITALS: BP 133/82
[2017-04-11] MEDS: HYDROMORPHONE HCL/PF 2MG/ML CPJ IV PRN (21:32)
[2017-04-12] VITALS: BP 172/58
[2017-04-12] MEDS: METOCLOPRAMIDE HCL 10MG/2ML VIAL IV SCH ×4 (06:15→23:33)
[2017-04-12] MEDS: PIPERACILLIN/TAZ 3.375G PREMIX 50 ML IV SCH ×3 (06:15→22:16)
[2017-04-12] MEDS: DEXT 5%/0.45% NACL KCL 40MEQ/L 1,000 ML IV SCH ×2 (06:15→23:33)
[2017-04-12] MEDS: SODIUM CHLORIDE 0.9% INJ 3ML FLUSH IVF SCH ×3 (06:16→22:16)
[2017-04-12] MEDS: BLOOD SUGAR DIAGNOSTIC STRIP TEST SCH ×4 (06:24→20:50)
[2017-04-12] MEDS: INSULIN LISPRO (LOW DOSE) 100 UNITS/ML SUBCUT SCH ×4 (06:25→20:50)
[2017-04-12 08:00] VITALS: BP 107/71
[2017-04-12] MEDS ORDERED: DIATR MEGLU/DIATRIZOATE SOLN 30ML PO SCH (08:15)
[2017-04-12] MEDS ORDERED: BARIUM SULFATE 450ML ORAL SUSP PO SCH (08:15)
[2017-04-12] MEDS ORDERED: PHYTONADIONE 10MG/ML AMP SUBCUT SCH (08:15)
[2017-04-12] MEDS: DOCUSATE SODIUM 100MG CAPSULE PO SCH ×2 (08:19→16:52)
[2017-04-12] MEDS: ENOXAPARIN 40MG/0.4ML SYR SUBCUT SCH (08:22)
[2017-04-12] MEDS: FLUCONAZOLE 400MG/200ML BAG 200 ML IV SCH (08:32)
[2017-04-12] MEDS: METOPROLOL TARTRATE 25MG TABLET PO SCH ×2 (08:33→20:57)
[2017-04-12] MEDS: AMLODIPINE 5MG TABLET PO SCH (08:34)
[2017-04-12 10:21] LABS: BASOPHILS % 0.8 % (0.0-2.0); EOSINOPHILS % 3.1 % (0.0-5.0); HEMATOCRIT. 28.4 % (42.0-52.0); HEMOGLOBIN. 9.5 g/dL (14.0-18.0); LYMPHOCYTES % 14.3 % (20.0-50.0); MEAN CORPUSCULAR VOLUME 92.4 fL (80.0-94.0); MEAN PLATELET VOLUME 7.2 fl (7.4-10.4); MONOCYTES % 7.9 % (2.0-8.0); NEUTROPHILS % 73.9 % (40.0-76.0); PLATELET 402 x1000/uL (130-400); RED BLOOD CELL COUNT 3.07 mill/uL (4.7-6.1); RED CELL DISTRIBUTION WIDTH 16.7 % (11.6-14.6)
[2017-04-12 10:58] LABS: CARBON DIOXIDE 20 mEq/L (21-32); CHLORIDE 114 mEq/L (98-107); PHOSPHORUS 1.9 mg/dL (2.5-4.9)
[2017-04-12 12:00] VITALS: BP 144/77
[2017-04-12] MEDS ORDERED: MAGNESIUM 1 G PREMIX 100 ML IV NR (14:00)
[2017-04-12 16:00] VITALS: BP 138/78
[2017-04-12] MEDS: VANCOMYCIN 750 MG PREMIX 150 ML IV SCH (17:36)
[2017-04-12] MEDS: HYDROMORPHONE HCL/PF 2MG/ML CPJ IV PRN (18:34)
[2017-04-12 20:00] VITALS: BP 148/80
[2017-04-13] VITALS: BP 159/66
[2017-04-13 04:00] VITALS: BP 152/73
[2017-04-13] MEDS: BLOOD SUGAR DIAGNOSTIC STRIP TEST SCH ×4 (05:41→21:18)
[2017-04-13] MEDS: INSULIN LISPRO (LOW DOSE) 100 UNITS/ML SUBCUT SCH ×4 (05:42→21:00)
[2017-04-13] MEDS: SODIUM CHLORIDE 0.9% INJ 3ML FLUSH IVF SCH ×3 (06:12→21:25)
[2017-04-13] MEDS: PIPERACILLIN/TAZ 3.375G PREMIX 50 ML IV SCH ×3 (06:12→21:25)
[2017-04-13] MEDS: METOCLOPRAMIDE HCL 10MG/2ML VIAL IV SCH ×4 (06:12→23:32)
[2017-04-13 07:04] LABS: BASOPHILS % 0.7 % (0.0-2.0); HEMATOCRIT. 24.8 % (42.0-52.0); HEMOGLOBIN. 8.5 g/dL (14.0-18.0); LYMPHOCYTES % 15.4 % (20.0-50.0); MEAN CORPUSCULAR HEMOGLOBIN 31.2 pg (28.0-32.0); MEAN CORPUSCULAR VOLUME 90.8 fL (80.0-94.0); MEAN PLATELET VOLUME 7.3 fl (7.4-10.4); MONOCYTES % 6.7 % (2.0-8.0); NEUTROPHILS % 73.2 % (40.0-76.0); PLATELET 408 x1000/uL (130-400); RED BLOOD CELL COUNT 2.73 mill/uL (4.7-6.1); RED CELL DISTRIBUTION WIDTH 16.8 % (11.6-14.6)
[2017-04-13 07:42] LABS: CARBON DIOXIDE 21 mEq/L (21-32); CHLORIDE 114 mEq/L (98-107); PHOSPHORUS 1.8 mg/dL (2.5-4.9)
[2017-04-13 08:24] VITALS: BP 158/71
[2017-04-13] MEDS: METOPROLOL TARTRATE 25MG TABLET PO SCH ×2 (08:32→21:25)
[2017-04-13] MEDS: DOCUSATE SODIUM 100MG CAPSULE PO SCH ×2 (08:33→17:03)
[2017-04-13] MEDS: AMLODIPINE 5MG TABLET PO SCH (08:33)
[2017-04-13] MEDS: FLUCONAZOLE 400MG/200ML BAG 200 ML IV SCH (08:36)
[2017-04-13] MEDS: ENOXAPARIN 40MG/0.4ML SYR SUBCUT SCH (08:40)
[2017-04-13] MEDS: POTASSIUM-SODIUM PHOSPHATE POWDER PACKET PO SCH ×2 (09:18→17:02)
[2017-04-13] MEDS: VANCOMYCIN 750 MG PREMIX 150 ML IV SCH (11:08)
[2017-04-13 12:00] VITALS: BP 135/79
[2017-04-13 16:41] VITALS: BP 133/65
[2017-04-13] MEDS: DEXT 5%/0.45% NACL KCL 40MEQ/L 1,000 ML IV SCH ×2 (17:03→19:45)
[2017-04-13] MEDS: HYDROMORPHONE HCL/PF 2MG/ML CPJ IV PRN (18:22)
[2017-04-13 20:00] VITALS: BP 140/68
[2017-04-14] VITALS: BP 147/72
[2017-04-14] MEDS: HYDROMORPHONE HCL/PF 2MG/ML CPJ IV PRN ×2 (03:39→21:14)
[2017-04-14 04:00] VITALS: BP 138/73
[2017-04-14] MEDS: DEXT 5%/0.45% NACL KCL 40MEQ/L 1,000 ML IV SCH (05:39)
[2017-04-14] MEDS: SODIUM CHLORIDE 0.9% INJ 3ML FLUSH IVF SCH ×3 (05:39→23:07)
[2017-04-14] MEDS: METOCLOPRAMIDE HCL 10MG/2ML VIAL IV SCH ×2 (05:39→13:12)
[2017-04-14] MEDS: PIPERACILLIN/TAZ 3.375G PREMIX 50 ML IV SCH ×3 (05:39→23:07)
[2017-04-14 06:52] LABS: EOSINOPHILS % 3.6 % (0.0-5.0); HEMATOCRIT. 27.6 % (42.0-52.0); HEMOGLOBIN. 9.1 g/dL (14.0-18.0); LYMPHOCYTES % 16.5 % (20.0-50.0); MEAN CORPUSCULAR HEMOGLOBIN 30.6 pg (28.0-32.0); MEAN CORPUSCULAR VOLUME 92.1 fL (80.0-94.0); MEAN PLATELET VOLUME 7.4 fl (7.4-10.4); MONOCYTES % 6.7 % (2.0-8.0); NEUTROPHILS % 72.2 % (40.0-76.0); PLATELET 435 x1000/uL (130-400); RED BLOOD CELL COUNT 2.99 mill/uL (4.7-6.1); RED CELL DISTRIBUTION WIDTH 16.9 % (11.6-14.6)
[2017-04-14] MEDS: BLOOD SUGAR DIAGNOSTIC STRIP TEST SCH ×4 (06:54→21:19)
[2017-04-14] MEDS: VANCOMYCIN 750 MG PREMIX 150 ML IV SCH (06:57)
[2017-04-14] MEDS: INSULIN LISPRO (LOW DOSE) 100 UNITS/ML SUBCUT SCH ×4 (07:06→21:00)
[2017-04-14 07:08] LABS: CARBON DIOXIDE 18 mEq/L (21-32); CHLORIDE 112 mEq/L (98-107); PHOSPHORUS 2.2 mg/dL (2.5-4.9)
[2017-04-14 08:29] VITALS: BP 135/65
[2017-04-14] MEDS: DOCUSATE SODIUM 100MG CAPSULE PO SCH ×2 (08:57→17:11)
[2017-04-14] MEDS: FLUCONAZOLE 400MG/200ML BAG 200 ML IV SCH (08:57)
[2017-04-14] MEDS: METOPROLOL TARTRATE 25MG TABLET PO SCH ×2 (08:58→21:48)
[2017-04-14] MEDS: AMLODIPINE 5MG TABLET PO SCH (08:58)
[2017-04-14] MEDS: POTASSIUM-SODIUM PHOSPHATE POWDER PACKET PO SCH ×2 (08:59→17:11)
[2017-04-14] MEDS: ENOXAPARIN 40MG/0.4ML SYR SUBCUT SCH (09:06)
[2017-04-14 12:16] VITALS: BP 123/63
[2017-04-14] MEDS ORDERED: POTASSIUM PHOS,M-BASIC-D-BASIC 20 MMOL in DEXT 5% WATER 243.3333 ML IV NR (14:00)
[2017-04-14 16:15] VITALS: BP 105/63
[2017-04-14] MEDS: METOCLOPRAMIDE 10MG/10 ML UDC PO SCH (18:47)
[2017-04-14 20:00] VITALS: BP 145/83
[2017-04-15] VITALS: BP 130/80
[2017-04-15] MEDS: VANCOMYCIN 750 MG PREMIX 150 ML IV SCH ×2 (00:25→20:00)
[2017-04-15] MEDS: METOCLOPRAMIDE 10MG/10 ML UDC PO SCH ×5 (00:25→23:29)
[2017-04-15] MEDS: DEXT 5%/0.45% NACL KCL 40MEQ/L 1,000 ML IV SCH ×3 (02:01→21:44)
[2017-04-15] MEDS: HYDROMORPHONE HCL/PF 2MG/ML CPJ IV PRN ×2 (03:21→20:04)
[2017-04-15 04:00] VITALS: BP 130/88
[2017-04-15] MEDS: SODIUM CHLORIDE 0.9% INJ 3ML FLUSH IVF SCH ×3 (05:13→21:44)
[2017-04-15] MEDS: PIPERACILLIN/TAZ 3.375G PREMIX 50 ML IV SCH ×3 (05:13→21:44)
[2017-04-15 06:14] LABS: BASOPHILS % 1.3 % (0.0-2.0); EOSINOPHILS % 4.3 % (0.0-5.0); HEMATOCRIT. 27.4 % (42.0-52.0); HEMOGLOBIN. 9.2 g/dL (14.0-18.0); LYMPHOCYTES % 18.3 % (20.0-50.0); MEAN CORPUSCULAR VOLUME 91.9 fL (80.0-94.0); MEAN PLATELET VOLUME 7.1 fl (7.4-10.4); MONOCYTES % 7.9 % (2.0-8.0); NEUTROPHILS % 68.2 % (40.0-76.0); PLATELET 439 x1000/uL (130-400); RED BLOOD CELL COUNT 2.98 mill/uL (4.7-6.1); RED CELL DISTRIBUTION WIDTH 16.8 % (11.6-14.6)
[2017-04-15 06:41] LABS: INR 1.1; PARTIAL THROMBOPLASTIN TIME 45.3 sec (23.4-31.0); PROTHROMBIN TIME 11.6 sec (9.4-11.6)
[2017-04-15 06:59] LABS: CARBON DIOXIDE 20 mEq/L (21-32); CHLORIDE 109 mEq/L (98-107)
[2017-04-15 07:04] LABS: PHOSPHORUS 3.4 mg/dL (2.5-4.9)
[2017-04-15] MEDS: BLOOD SUGAR DIAGNOSTIC STRIP TEST SCH ×4 (07:33→21:03)
[2017-04-15] MEDS: INSULIN LISPRO (LOW DOSE) 100 UNITS/ML SUBCUT SCH ×4 (07:34→21:00)
[2017-04-15 08:00] VITALS: BP 127/67
[2017-04-15] MEDS: DOCUSATE SODIUM 100MG CAPSULE PO SCH ×2 (09:00→17:59)
[2017-04-15] MEDS: POTASSIUM-SODIUM PHOSPHATE POWDER PACKET PO SCH ×2 (09:00→17:59)
[2017-04-15] MEDS: FLUCONAZOLE 400MG/200ML BAG 200 ML IV SCH (09:35)
[2017-04-15] MEDS: METOPROLOL TARTRATE 25MG TABLET PO SCH ×2 (09:36→20:01)
[2017-04-15] MEDS: AMLODIPINE 5MG TABLET PO SCH (09:37)
[2017-04-15] MEDS ORDERED: SIMETHICONE 40 MG/0.6 ML 30ML ONE (10:41)
[2017-04-15] MEDS ORDERED: SUCCINYLCHOLINE CHLORIDE 200MG/10ML VIAL IV ONE (11:00)
[2017-04-15] MEDS ORDERED: PROPOFOL 200MG/20ML VIAL IV ONE (11:00)
[2017-04-15] MEDS ORDERED: LIDOCAINE HCL 1% 20ML VIAL (Pyxis) INJ ONE (11:00)
[2017-04-15] MEDS ORDERED: IOHEXOL-300 100 ML BOTTLE ONE (11:31)
[2017-04-15 12:00] VITALS: BP 121/67
[2017-04-15] MEDS ORDERED: SODIUM CHLORIDE 0.9% 1,000 ML IV SCH (12:17)
[2017-04-15] MEDS ORDERED: MORPHINE SULFATE 2 MG/ML CPJ (NOT FOR IM USE) IV PRN (12:30)
[2017-04-15] MEDS ORDERED: ONDANSETRON HCL 4MG/2ML VIAL IV PRN (12:30)
[2017-04-15 16:00] VITALS: BP 128/73
[2017-04-15 20:00] VITALS: BP 130/65
[2017-04-16] VITALS: BP 121/74
[2017-04-16] MEDS: HYDROMORPHONE HCL/PF 2MG/ML CPJ IV PRN (03:29)
[2017-04-16 04:00] VITALS: BP 141/67
[2017-04-16] MEDS: SODIUM CHLORIDE 0.9% INJ 3ML FLUSH IVF SCH ×3 (06:00→21:20)
[2017-04-16] MEDS: PIPERACILLIN/TAZ 3.375G PREMIX 50 ML IV SCH ×3 (06:00→21:20)
[2017-04-16] MEDS: METOCLOPRAMIDE 10MG/10 ML UDC PO SCH ×3 (06:00→17:00)
[2017-04-16] MEDS: INSULIN LISPRO (LOW DOSE) 100 UNITS/ML SUBCUT SCH (07:40)
[2017-04-16] MEDS: BLOOD SUGAR DIAGNOSTIC STRIP TEST SCH (07:43)
[2017-04-16 07:44] VITALS: BP 129/70
[2017-04-16 08:11] LABS: BASOPHILS % 0.8 % (0.0-2.0); EOSINOPHILS % 3.8 % (0.0-5.0); HEMATOCRIT. 24.3 % (42.0-52.0); HEMOGLOBIN. 8.3 g/dL (14.0-18.0); LYMPHOCYTES % 17.6 % (20.0-50.0); MEAN CORPUSCULAR HEMOGLOBIN 31.2 pg (28.0-32.0); MEAN CORPUSCULAR VOLUME 91.5 fL (80.0-94.0); MEAN PLATELET VOLUME 7.1 fl (7.4-10.4); MONOCYTES % 8.4 % (2.0-8.0); NEUTROPHILS % 69.4 % (40.0-76.0); PLATELET 422 x1000/uL (130-400); RED BLOOD CELL COUNT 2.66 mill/uL (4.7-6.1); RED CELL DISTRIBUTION WIDTH 16.8 % (11.6-14.6)
[2017-04-16] MEDS: DOCUSATE SODIUM 100MG CAPSULE PO SCH ×2 (08:44→16:58)
[2017-04-16] MEDS: MULTIVITAMINS,THER W-MINERALS TABLET PO SCH (08:44)
[2017-04-16] MEDS: METOPROLOL TARTRATE 25MG TABLET PO SCH ×2 (08:45→20:31)
[2017-04-16] MEDS: AMLODIPINE 5MG TABLET PO SCH (08:45)
[2017-04-16] MEDS: POTASSIUM-SODIUM PHOSPHATE POWDER PACKET PO SCH ×2 (08:45→17:10)
[2017-04-16] MEDS: FLUCONAZOLE 400MG/200ML BAG 200 ML IV SCH (08:45)
[2017-04-16] MEDS: DEXT 5%/0.45% NACL KCL 40MEQ/L 1,000 ML IV SCH ×2 (08:45→20:30)
[2017-04-16 09:16] LABS: CARBON DIOXIDE 21 mEq/L (21-32); CHLORIDE 110 mEq/L (98-107); PHOSPHORUS 2.3 mg/dL (2.5-4.9)
[2017-04-16] MEDS: VANCOMYCIN 750 MG PREMIX 150 ML IV SCH (11:11)
[2017-04-16 12:00] VITALS: BP 119/63
[2017-04-16] MEDS ORDERED: MAGNESIUM 2 G PREMIX 50 ML IV NR (13:30)
[2017-04-16] MEDS ORDERED: POTASSIUM PHOS,M-BASIC-D-BASIC 15 MMOL in SODIUM CHLORIDE 0.9% 250 ML IV NR (14:30)
[2017-04-16 16:00] VITALS: BP 124/76
[2017-04-16 20:00] VITALS: BP 123/62
[2017-04-17] VITALS: BP 97/58
[2017-04-17] MEDS: METOCLOPRAMIDE 10MG/10 ML UDC PO SCH ×4 (00:54→17:20)
[2017-04-17 04:00] VITALS: BP 141/65
[2017-04-17] MEDS: HYDROMORPHONE HCL/PF 2MG/ML CPJ IV PRN ×3 (04:26→22:12)
[2017-04-17] MEDS: PIPERACILLIN/TAZ 3.375G PREMIX 50 ML IV SCH ×3 (05:14→21:59)
[2017-04-17] MEDS: VANCOMYCIN 750 MG PREMIX 150 ML IV SCH (05:14)
[2017-04-17] MEDS: SODIUM CHLORIDE 0.9% INJ 3ML FLUSH IVF SCH ×3 (05:15→21:59)
[2017-04-17 07:34] LABS: BASOPHILS % 1.1 % (0.0-2.0); EOSINOPHILS % 5.8 % (0.0-5.0); HEMATOCRIT. 24.5 % (42.0-52.0); HEMOGLOBIN. 8.5 g/dL (14.0-18.0); LYMPHOCYTES % 19.7 % (20.0-50.0); MEAN CORPUSCULAR HEMOGLOBIN 31.7 pg (28.0-32.0); MEAN CORPUSCULAR VOLUME 91.3 fL (80.0-94.0); MEAN PLATELET VOLUME 7.1 fl (7.4-10.4); MONOCYTES % 9.9 % (2.0-8.0); NEUTROPHILS % 63.5 % (40.0-76.0); PLATELET 425 x1000/uL (130-400); RED BLOOD CELL COUNT 2.68 mill/uL (4.7-6.1); RED CELL DISTRIBUTION WIDTH 16.9 % (11.6-14.6)
[2017-04-17 08:00] VITALS: BP 127/60
[2017-04-17 08:19] LABS: CARBON DIOXIDE 20 mEq/L (21-32); CHLORIDE 111 mEq/L (98-107)
[2017-04-17 08:29] LABS: PHOSPHORUS 2.4 mg/dL (2.5-4.9)
[2017-04-17] MEDS: DOCUSATE SODIUM 100MG CAPSULE PO SCH ×2 (08:50→17:20)
[2017-04-17] MEDS: AMLODIPINE 5MG TABLET PO SCH (08:50)
[2017-04-17] MEDS: METOPROLOL TARTRATE 25MG TABLET PO SCH ×2 (08:52→21:59)
[2017-04-17] MEDS: MULTIVITAMINS,THER W-MINERALS TABLET PO SCH (08:53)
[2017-04-17] MEDS: FLUCONAZOLE 400MG/200ML BAG 200 ML IV SCH (09:48)
[2017-04-17] MEDS: POTASSIUM-SODIUM PHOSPHATE POWDER PACKET PO SCH ×3 (09:49→17:20)
[2017-04-17 12:00] VITALS: BP 136/64
[2017-04-17 20:00] VITALS: BP 129/61
[2017-04-17] MEDS: DEXT 5%/0.45% NACL KCL 40MEQ/L 1,000 ML IV SCH (22:24)
[2017-04-18] VITALS: BP 120/58
[2017-04-18] MEDS: METOCLOPRAMIDE 10MG/10 ML UDC PO SCH ×4 (00:25→16:58)
[2017-04-18 04:00] VITALS: BP 106/49
[2017-04-18] MEDS: SODIUM CHLORIDE 0.9% INJ 3ML FLUSH IVF SCH ×3 (05:04→20:04)
[2017-04-18 08:00] VITALS: BP 142/57
[2017-04-18] MEDS: FLUCONAZOLE 400MG/200ML BAG 200 ML IV SCH (08:28)
[2017-04-18] MEDS: DOCUSATE SODIUM 100MG CAPSULE PO SCH ×2 (08:28→16:58)
[2017-04-18] MEDS: POTASSIUM-SODIUM PHOSPHATE POWDER PACKET PO SCH ×3 (08:29→16:58)
[2017-04-18] MEDS: MULTIVITAMINS,THER W-MINERALS TABLET PO SCH (08:29)
[2017-04-18] MEDS: AMLODIPINE 5MG TABLET PO SCH (08:30)
[2017-04-18] MEDS: METOPROLOL TARTRATE 25MG TABLET PO SCH ×2 (08:31→20:08)
[2017-04-18] MEDS: DEXT 5%/0.45% NACL KCL 40MEQ/L 1,000 ML IV SCH (10:27)
[2017-04-18] MEDS: HYDROMORPHONE HCL/PF 2MG/ML CPJ IV PRN ×2 (10:28→20:04)
[2017-04-18 12:00] VITALS: BP 120/72
[2017-04-18 16:00] VITALS: BP 100/45
[2017-04-18 20:00] VITALS: BP 129/65
[2017-04-19] VITALS: BP 111/56
[2017-04-19] MEDS: METOCLOPRAMIDE 10MG/10 ML UDC PO SCH ×5 (00:49→23:14)
[2017-04-19] MEDS: DEXT 5%/0.45% NACL KCL 40MEQ/L 1,000 ML IV SCH ×2 (00:49→13:12)
[2017-04-19] MEDS: HYDROMORPHONE HCL/PF 2MG/ML CPJ IV PRN ×3 (01:56→20:00)
[2017-04-19 04:00] VITALS: BP 120/57
[2017-04-19] MEDS: SODIUM CHLORIDE 0.9% INJ 3ML FLUSH IVF SCH ×3 (05:32→21:26)
[2017-04-19 08:00] VITALS: BP 143/55
[2017-04-19] MEDS: METOPROLOL TARTRATE 25MG TABLET PO SCH ×2 (09:00→21:25)
[2017-04-19] MEDS: AMLODIPINE 5MG TABLET PO SCH (09:00)
[2017-04-19] MEDS: POTASSIUM-SODIUM PHOSPHATE POWDER PACKET PO SCH ×3 (09:00→16:53)
[2017-04-19] MEDS: MULTIVITAMINS,THER W-MINERALS TABLET PO SCH (09:13)
[2017-04-19] MEDS: DOCUSATE SODIUM 100MG CAPSULE PO SCH ×2 (09:13→16:53)
[2017-04-19] MEDS: ENOXAPARIN 40MG/0.4ML SYR SUBCUT SCH (09:14)
[2017-04-19 13:22] LABS: CLARITY URINE CLEAR (CLEAR); COLOR URINE YELLOW (YELLOW); GLUCOSE URINE NEGATIVE (NEGATIVE); KETONES URINE NEGATIVE (NEGATIVE); LEUKOCYTE ESTERASE URINE NEGATIVE (NEGATIVE); NITRITE URINE NEGATIVE (NEGATIVE); OCCULT BLOOD URINE NEGATIVE (NEGATIVE); PROTEIN URINE TRACE (NEGATIVE); SPECIFIC GRAVITY URINE 1.014 (1.005-1.030); UROBILINOGEN URINE 0.2 E.U./dL (0.2-1.0)
[2017-04-19] MEDS: METOCLOPRAMIDE HCL 10MG/2ML VIAL IV PRN ×2 (15:14→21:24)
[2017-04-19 16:00] VITALS: BP 138/60
[2017-04-19 20:00] VITALS: BP 140/74
[2017-04-20] VITALS: BP 132/60
[2017-04-20] MEDS: METOCLOPRAMIDE HCL 10MG/2ML VIAL IV PRN (03:45)
[2017-04-20] MEDS: HYDROMORPHONE HCL/PF 2MG/ML CPJ IV PRN ×3 (03:50→16:00)
[2017-04-20 04:00] VITALS: BP 137/61
[2017-04-20] MEDS: DEXT 5%/0.45% NACL KCL 40MEQ/L 1,000 ML IV SCH (05:30)
[2017-04-20] MEDS: SODIUM CHLORIDE 0.9% INJ 3ML FLUSH IVF SCH ×2 (05:30→14:01)
[2017-04-20] MEDS: METOCLOPRAMIDE 10MG/10 ML UDC PO SCH ×2 (05:30→11:26)
[2017-04-20 06:35] LABS: BASOPHILS % 1.7 % (0.0-2.0); EOSINOPHILS % 4.8 % (0.0-5.0); HEMATOCRIT. 23.7 % (42.0-52.0); HEMOGLOBIN. 7.8 g/dL (14.0-18.0); LYMPHOCYTES % 22.5 % (20.0-50.0); MEAN CORPUSCULAR HEMOGLOBIN 30.4 pg (28.0-32.0); MEAN CORPUSCULAR VOLUME 92.2 fL (80.0-94.0); MONOCYTES % 11.3 % (2.0-8.0); NEUTROPHILS % 59.7 % (40.0-76.0); PLATELET 457 x1000/uL (130-400); RED BLOOD CELL COUNT 2.57 mill/uL (4.7-6.1); RED CELL DISTRIBUTION WIDTH 16.5 % (11.6-14.6)
[2017-04-20 07:07] LABS: CHLORIDE 111 mEq/L (98-107)
[2017-04-20 07:17] LABS: CARBON DIOXIDE 20 mEq/L (21-32); PHOSPHORUS 2.4 mg/dL (2.5-4.9)
[2017-04-20 08:00] VITALS: BP 139/58
[2017-04-20] MEDS: METOPROLOL TARTRATE 25MG TABLET PO SCH (08:08)
[2017-04-20] MEDS: ENOXAPARIN 40MG/0.4ML SYR SUBCUT SCH (08:12)
[2017-04-20] MEDS: POTASSIUM-SODIUM PHOSPHATE POWDER PACKET PO SCH ×2 (08:12→12:02)
[2017-04-20] MEDS: MULTIVITAMINS,THER W-MINERALS TABLET PO SCH (08:12)
[2017-04-20] MEDS: DOCUSATE SODIUM 100MG CAPSULE PO SCH (08:12)
[2017-04-20] MEDS: AMLODIPINE 5MG TABLET PO SCH (08:12)
[2017-04-20 12:00] VITALS: BP 132/58
[2017-04-20 16:00] VITALS: BP 127/88
[2017-04-20 16:13] VITALS: BP 127/88
[2017-04-25] MEDS ORDERED: METO-293 PO (02:37)
[2017-04-25] MEDS ORDERED: LOV40 SUBCUT (02:38)
[2017-04-25] MEDS ORDERED: METO25TA6 PO (02:39)
[2017-04-25] MEDS ORDERED: AMLO10TA80 PO (02:41)
== END 2017-04-20 19:10 | DRG 853 ==
LOC: OR 06:10 → INTOOBSV 06:11 → 6EST 06:11 → OBSVTOIN 06:11 → 6EST 18:39 → 8WST 03-30 20:05
PROVIDERS: ADMIT Hospitalist; ATTEND Hospitalist
PROC: 30233N1 Transfusion of Nonautologous Red Blood Cells into Peripheral Vein, Percutaneous Approach (ICD-10-PCS; 2017-03-24)
PROC: 0FT44ZZ Resection of Gallbladder, Percutaneous Endoscopic Approach (ICD-10-PCS; principal; 2017-03-24 09:30)
PROC: 02HV33Z Insertion of Infusion Device into Superior Vena Cava, Percutaneous Approach (ICD-10-PCS; 2017-03-30)
PROC: B5181ZA Fluoroscopy of Superior Vena Cava using Low Osmolar Contrast, Guidance (ICD-10-PCS; 2017-03-30)
PROC: 0W9G30Z Drainage of Peritoneal Cavity with Drainage Device, Percutaneous Approach (ICD-10-PCS; 2017-04-05)
PROC: 0F798DZ Dilation of Common Bile Duct with Intraluminal Device, Via Natural or Artificial Opening Endoscopic (ICD-10-PCS; 2017-04-08)
PROC: 0F798DZ Dilation of Common Bile Duct with Intraluminal Device, Via Natural or Artificial Opening Endoscopic (ICD-10-PCS; 2017-04-15)
DX: A41.9 Sepsis, unspecified organism (principal); E43 Unspecified severe protein-calorie malnutrition; I96 Gangrene, not elsewhere classified; N17.9 Acute kidney failure, unspecified; K56.600 Partial intestinal obstruction, unspecified as to cause; K80.00 Calculus of gallbladder with acute cholecystitis without obstruction; E87.5 Hyperkalemia; I13.0 Hypertensive heart and chronic kidney disease with heart failure and stage 1 through stage 4 chronic kidney disease, or unspecified chronic kidney disease; K56.7 Ileus, unspecified; L02.211 Cutaneous abscess of abdominal wall; Z66 Do not resuscitate; I50.9 Heart failure, unspecified; D64.9 Anemia, unspecified; E78.5 Hyperlipidemia, unspecified; N18.9 Chronic kidney disease, unspecified; E87.6 Hypokalemia; H26.9 Unspecified cataract; H40.9 Unspecified glaucoma; K29.70 Gastritis, unspecified, without bleeding; K52.9 Noninfective gastroenteritis and colitis, unspecified; K66.0 Peritoneal adhesions (postprocedural) (postinfection); N40.0 Benign prostatic hyperplasia without lower urinary tract symptoms; R73.9 Hyperglycemia, unspecified; I95.9 Hypotension, unspecified; Z86.718 Personal history of other venous thrombosis and embolism; Z87.440 Personal history of urinary (tract) infections; Z87.891 Personal history of nicotine dependence; Z68.20 Body mass index [BMI] 20.0-20.9, adult
CPT/HCPCS: 36415; 36569; 49180; 71010; 73706; 74000; 74176; 74330; 76937; 77001; 77012; 78227; 78278; 80048; 80053; 80202; 81001; 82043; 82270; 82330; 82570; 82947; 82962; 83690; 83735; 84100; 84132; 84134; 84145; 84156; 84300; 85014; 85018; 85025; 85027; 85610; 85730; 86850; 86870; 86880; 86900; 86920; 87040; 87070; 87077; 87086; 87106; 87186; 87205; 87493; 88304; 93970; 93971; 97110; 97162; 97164; 97530; A4216; A6261; A9537; A9560; C1725; C1726; C1729; C1769; C2625; J0330; J0690; J1100; J1170; J1450; J1650; J1815; J2250; J2270; J2405; J2543; J2704; J2710; J2765; J3010; J3370; J3430; J3475; J3480; J3490; J7030; J7040; J7050; J7060; J7070; J8597; L8514; P9016; Q9963; Q9967; A4315